=== PATIENT | female | born 1980 | race Caucasian/White ===

== ENCOUNTER 2019-05-18 11:21 | Emergency (ER) | payer OTHER ==
[~2019-05-18] VITALS: Ht 162.5 cm; Wt 56.7 kg
[~2019-05-18 11:21] MED LIST: IBUPROFEN200 MG PO; NKHM; PEN-VEE K500 MG PO; PENICILLIN VK500 MG PO; TRAMADOL HCL50 MG PO; ULTRAM50 MG PO; VICODIN 5/500 505 MG PO
[2019-05-18] MEDS ORDERED: CLINDAMYCIN HC300 MG PO (11:49)
[2019-05-18] MEDS ORDERED: Motrin,Rufen800 MG PO (11:49)
== END 2019-05-18 12:10 | disposition home or self-care (01) ==
LOC: ED 11:21
DX: K04.7 Periapical abscess without sinus (principal)